=== PATIENT | female | born 1995 ===

== ENCOUNTER → 2020-12-25 11:52 | Outpatient (BNVA) | payer SELFPAY | PROVIDERS: PCP Pediatrics; Visit Provider Physician Assistant | DX: Z02.79 Encounter for issue of other medical certificate (principal) ==

== ENCOUNTER 2022-10-08 21:15 | Emergency (ER) | payer OTHER, SELFPAY ==
[2022-10-08 21:28] VITALS: BP 128/88; PULSE 54; RESP 18; TEMP 36.6; O2SAT 99; BMI 19.1
[2022-10-08 21:58] LABS: MANUAL DIFF FLAG NO
[2022-10-08 22:00] LABS: Basophils Absolute Auto 0.1 X10*3/uL (0.0-0.2); Basophils Percent Auto 1.3 % (0-2); Eosinophils Absolute Auto 1.2 X10*3/uL (0.0-0.4); Hematocrit 39.7 % (37.0-47.0); Hemoglobin 13.1 g/dl (12.0-16.0); Imm Gran Abs Auto 0.02 X10*3/uL (0.00-0.03); Imm Gran Pct Auto 0.2 % (0.0-0.4); Lymphocytes Absolute Auto 2.6 X10*3/uL (1.2-4.9); Lymphocytes Percent Auto 29.8 % (20-40); Mean Corpuscular Volume 87.8 fL (80.0-98.0); Mean Platelet Volume 10.1 fL (9.4-12.3); Monocytes Absolute Auto 0.7 X10*3/uL (0.1-1.2); Monocytes Percent Auto 7.4 % (2-11); Neutrophils Absolute Auto 4.1 x10*3/uL (2.0-8.3); Neutrophils Percent Auto 47.3 % (45-73); Platelet Count 208 X10*3/uL (160-400); Red Blood Count 4.52 X10*6/uL (4.20-5.50); Red Cell Distribution Width 12.4 % (11.0-16.0); White Blood Count 8.8 X10*3/uL (4.8-10.8)
[2022-10-08 22:01] LABS: Appearance Urine Clear; Color Urine Yellow; Glucose Urine UA Negative (Negative); Leukocyte Esterase Urine Negative (Negative); Nitrite Urine Negative (Negative); PH 6.5 (5.0-9.0); Specific Gravity - Urine 1.015 (1.005-1.025); UMIC TRIGGER UACC YES; Urine Blood Large (3+) (Negative); Urine Ketones Negative (Negative); Urine Protein Negative (Neg-Trace)
[2022-10-08 22:08] LABS: Bacteria Urine None Seen (None Seen); Hyaline Casts Urine 0-2 /LPF (0-2); RBC Urine 0-2 /HPF (0-2); WBC Urine 0-5 /HPF (0-5)
[2022-10-08 22:18] LABS: Anion Gap 10 (12-20); Blood Urea Nitrogen 14 mg/dL (9-16); Calcium 9.2 mg/dL (8.4-10.2); Carbon Dioxide 27 mmol/L (22-29); Chloride 106 mmol/L (96-108); Creatinine Clr Calc Pharmacy 71.6; Estimated Glomerular Filt Rate > 60; Glucose Random 95 mg/dL (60-115); Potassium 3.9 mmol/L (3.3-5.1); Sodium 139 mmol/L (135-145)
[2022-10-08 22:21] LABS: HCG Quantitative < 2 mIU/mL
--- NOTE | 2022-10-08 23:11 | ED.FEMALEGU ---
HPI - Female Genitourinary General Chief complaint: Vaginal Bleeding Stated complaint: 1 month bleeding Time Seen by Provider: 10/08/22 22:06 History of Present Illness HPI Narrative: Patient is a 27-year-old female presents today with having vaginal bleeding has been ongoing for about a month. Currently bleeding about 2 pads per day. Patient's bleeding stopped for about 2 weeks. Subsequently restarted about a week and a half ago. Now is being 2 pads per day. She unsure about her status. Patient is from home. No dizziness no nausea no vomiting to see no systemic complaints. She is sexually active Related Data Allergies Allergy/AdvReac Type Severity Reaction Status Date / Time No Known Allergies Allergy Verified 10/08/22 21:28 Review of Systems Review of Systems: No fever no chills no chest pain or shortness breath no systemic complaints Yes all other systems are reviewed and are negative [facility] Past Medical History Attestation statement: The following information was validated with the patient. Social History Social History Advance Directives: No Advance Directives Information Provided: Yes Physical Exam Vital Signs: Vital Signs: Last Vital Signs Temp 97.9 F 10/08/22 21:28 Pulse 54 10/08/22 21:28 Resp 18 10/08/22 21:28 BP 128/88 10/08/22 21:28 Pulse Ox 99 10/08/22 21:28 O2 Del Method Room Air 10/08/22 21:28 BMI result Body Mass Index 19.1 Appearance: Alert. Oriented X3. No acute distress. Eyes: Pupils equal, round and reactive to light. ENT: Pharynx normal. Neck: Normal inspection. Neck supple. No lymph nodes noted. No crepitus CVS: Normal heart rate and rhythm. Pulses normal. Normal S1 and S2 Respiratory: No respiratory distress. Breath sounds normal. No Wheezing. No rales Abdomen: Soft and nontender. No rigidity. No distention. good BS x4 Gentle exam done with Sabrina the commercial hvac service technician present. There is no external lesion noted. There is a small abrasion in the vaginal wall on the left side. The cervical os is closed. There was minimal amount of blood in the vaginal vault. There is no adnexal tenderness elicited Skin: Skin warm and dry. Normal skin color. Normal skin turgor. Extremities: No lower extremity edema. Neurovascular intact to all extremities. No Lacerations. No Rash Neuro: Oriented X 3. No motor deficit. No sensory deficit. Moving all extermities. No slurred speech Medical Decision Making Medical Decision Making [facility] Narrative: Patient well-appearing. Hemoglobin is 13. There is no overt signs of anemia. No distress. Heart rate is normal. Patient's test is negative. Unlikely to have ectopic . Will discharge patient home. Postop follow-up with OBGYN on an outpatient basis Differential Diagnosis related issue, retained product, vaginal bleeding, normal menstruation Lab Data [facility] Lab Attestation statement: I reviewed the patient's lab results. 10/08/22 21:48 10/08/22 21:48 Labs: Lab Results 10/08/22 10/08/22 10/08/22 Range/Units 21:48 21:48 21:54 WBC 8.8 (4.8-10.8) X10*3/uL RBC 4.52 (4.20-5.50) X10*6/uL Hgb 13.1 (12.0-16.0) g/dl Hct 39.7 (37.0-47.0) % MCV 87.8 (80.0-98.0) fL MCH 29.0 (27.0-33.0) pg MCHC 33.0 (31.0-35.0) g/dl RDW 12.4 (11.0-16.0) % Plt Count 208 (160-400) X10*3/uL MPV 10.1 (9.4-12.3) fL Immature Gran % (Auto) 0.2 (0.0-0.4) % Neut % (Auto) 47.3 (45-73) % Lymph % (Auto) 29.8 (20-40) % [place] % (Auto) 7.4 (2-11) % Eos % (Auto) 14.0 H (0-4) % Baso % (Auto) 1.3 (0-2) % Lymph # (Auto) 2.6 (1.2-4.9) X10*3/uL [place] # (Auto) 0.7 (0.1-1.2) X10*3/uL Eos # (Auto) 1.2 H (0.0-0.4) X10*3/uL Baso # (Auto) 0.1 (0.0-0.2) X10*3/uL Abs Immat Gran (auto) 0.02 (0.00-0.03) X10*3/uL Absolute Neuts (auto) 4.1 (2.0-8.3) x10*3/uL Absolute Nucleated RBC 0.000 (0.0-0.012) X10*3/uL Nucleated RBC % (auto) 0.0 (0.0-0.2) /100WBC Sodium 139 (135-145) mmol/L Potassium 3.9 (3.3-5.1) mmol/L Chloride 106 (96-108) mmol/L Carbon Dioxide 27 (22-29) mmol/L Anion Gap 10 L (12-20) BUN 14 (9-16) mg/dL Creatinine 0.98 (0.5-1.4) mg/dL Estim Creat Clear Calc 71.6 Estimated GFR > 60 Random Glucose 95 (60-115) mg/dL Calcium 9.2 (8.4-10.2) mg/dL Beta HCG, Quant < 2 mIU/mL Urine Color Yellow Urine Appearance Clear Urine pH 6.5 (5.0-9.0) Ur Specific [place] 1.015 (1.005-1.025) Urine Protein Negative (Neg-Trace) mg/dL Urine Glucose (UA) Negative (Negative) mg/dL Urine Ketones Negative (Negative) mg/dL Urine Blood Large (3+) H (Negative) Urine Nitrite Negative (Negative) Ur Leukocyte Esterase Negative (Negative) Urine RBC 0-2 (0-2) /HPF Urine WBC 0-5 (0-5) /HPF Ur Squamous Epith Cells 3-5 (0-2) /HPF Urine Bacteria None Seen (None Seen) Hyaline Casts 0-2 (0-2) /LPF Independent Historian Clinical information obtained from an independent historian. History obtained from or confirmed by: Spouse Discharge Plan Discharge Clinical Impression: Vaginal bleeding Patient Disposition: Home, Self-Care Instructions: Dysfunctional Uterine Bleeding (ED) Referrals: Sal Hammonds MD [Physician] - 10/12/22
--- NOTE | 2022-10-08 23:13 | MHC.EDTECH ---
this pct investigations manager with dr alegria during patient pelvic exam .
[2022-10-08 23:17] VITALS: BP 114/67; PULSE 75; RESP 16; TEMP 36.6; O2SAT 97
== END 2022-10-08 23:35 | disposition home or self-care (01) ==
PROVIDERS: Emergency Provider Emergency Medicine Emergency Medical Services
DX: N93.9 Abnormal uterine and vaginal bleeding, unspecified (principal)
CPT/HCPCS: 36415; 80048; 81001; 84702; 85025; 99283; 99284

== ENCOUNTER 2025-05-11 09:50 | Outpatient (REF) | payer OTHER, SELFPAY ==
--- OUTSIDE RECORDS SUMMARY | 2025-05-11 10:50 | XMS_ITS | Clinical Summary ---
Author Organization [employer] Address [address] [place] [address] Care Team Providers Care Motor Builder Winder Name Role Phone Jennifer Butts MD Primary Care Provide r Allergies No known active allergies Medications fluticasone (Flonase) 50 MCG/ACT nasal sprayIndication s:Allergic rhinitis, unspecified seasonality, unspecified trigger Use 1-2 sprays each nostril daily. Shake gently. Before first use, prime pump. After use, clean tip and replace cap. 16 g 2 04/23/20 25 Active loratadine (Claritin) 10 MG tabletIndicatio ns:Allergic rhinitis, unspecified seasonality, unspecified trigger Take 1 tablet (10 mg) by mouth Once per day. 30 tablet 2 04/23/20 25 026 Active fluticasone (Flonase) 50 MCG/ACT nasal sprayIndication s:Allergic rhinitis, unspecified seasonality, unspecified trigger Use 1-2 sprays each nostril daily. Shake gently. Before first use, prime pump. After use, clean tip and replace cap. 16 g 2 09/20/19 25 025 Discontinued(Re order (will not trigger notification to Pharmacy)) loratadine (Claritin) 10 MG tabletIndicatio ns:Allergic rhinitis, unspecified seasonality, unspecified trigger Take 1 tablet (10 mg) by mouth Once per day. 30 tablet 2 09/20/19 25 025 Discontinued(Re order (will not trigger notification to Pharmacy)) Active Problems Problem Noted Date Diagnosed Date Seasonal allergic rhinitis 04/23/2025 Health care maintenance 04/23/2025 Encounters Date Type Department Care Team Description 04/23/2025 10:45 AM EST Office Visit [facility] [address] [place] [address] Jennifer Butts MD Seasonal allergic rhinitis, unspecified trigger (Primary Dx); Health care maintenance; Allergic rhinitis, unspecified seasonality, unspecified trigger 04/23/2025 Travel 04/10/2025 Patient Outreach [facility] [address] [place] [address] Jennifer Butts MD Pre-visit Planning (SDNH screening completed on 12/26/2024) from Last 3 Months Social History Tobacco Use Types Packs/Day Years Used Date Smoking Tobacco: Never Smokeless Tobacco: Never Tobacco Cessation:Counseling Given: Not Answered Housing Stability Answer Date Recorded What is your housing situation today? I have lorrimaría elena mares 12/26/[address] you li ve. Do you have problems with any of the following? None of the above 12/26/2024 Food Insecurity Answer Date Recorded Within the past 12 months, y ou worried that your food would run out before you got money to buy more: Never True 12/26/2024 Within the past 12 months,th e food you bought just didn't last and you didn't have enough money to get more: Never True 09/2024 Transportation Answer Date Recorded In the past 12 months, has l ack of transportation kept you from medical appts, meetings, work or from getting things needed for daily living? No 12/26/2024 Utilities Answer Date Recorded In the past 12 months, has t he electric, gas, oil or water company threatened to shut off services in your home? No 12/26/2024 Internet Access Answer Date Recorded Internet Access Q1 Yes 12/26/2024 Internet Access Q2 Not on file 12/26/2024 Comments Unknown Sex and Gender Information Value Date Recorded Sex Assigned at Female 09/19/2024 5:03 PM EDT Legal Sex Female 3:45 PM EDT Gender Identity Female 09/19/2024 5:03 PM EDT Sexual Orientation Straight 09/19/2024 5: 03 PM EDT Last Filed Vital Signs Vital Sign Reading Time Taken Comments Blood Pressure 92/68 04/23/2025 10:57 AM EST Pulse 72 04/23/2025 10:57 AM EST Temperature 36.1 C (96.9 F) 04/23/2025 10:57 AM EST Respiratory Rate 14 04/23/2025 10:57 AM EST Oxygen Saturation 98% 04/23/2025 10:57 AM EST Inhaled Oxygen Concentration - - Weight 55.5 kg (122 lb 6.4 oz) 04/23/2025 10:57 AM EST Height 165.1 cm (5' 5 ) 04/23/2025 10:57 AM EST Body Mass Index 20.37 04/23/2025 10:57 AM EST Plan of Treatment Upcoming Encounters Date Type Department Care Team (Late st Contact Info) Description 05/16/2025 9:00 AM EST Telemedicine [facility] [address] [place], [place] [phone] Jennifer Butts MD [address] [place] [address] Health Maintenance Due Date Last Done Comments Depression Screening 1996 HIV Screening 1996 Disability Screening 1996 Alcohol/Substance Use Screening 2008 Family Planning (PISQ) 2011 Hepatitis C Screening 2014 Pap Smear 2017 COVID-19 Vaccine ( season) 2025 12/12/2020 Influenza Vaccine (#1) 2025 , 05/05/2023, 06/03/2016, Additional history exists SDOH Screening 12/26/2025 12/26/2024 Tobacco Screening 04/23/2026 04/23/2025 DTaP/Tdap/Td Vaccines (8 - Td or Tdap) 04/22/2033 04/22/2023, 11/15/2012, 09/16/2007, Additional history exists Zoster Vaccines (1 of 2) 2046 Hepatitis B Vaccines Completed 1996, 1996, 1996 HIB Vaccines Completed 08/06/1997, 12/23, 1996, Additional history exists IPV Vaccines Completed 05/12/2000, 12/23, 1996, Additional history exists HPV Vaccines Completed 04/02/2008, 07/0 12/2007, 09/16/2007 Hepatitis A Vaccines Completed 05/31/2015, 05/03/20 14 Meningococcal Vaccine Aged Out 05/31/2015, 008 No longer eligible based on patient's age to complete this topic RSV Patients and Patients Aged 60 years or older Completed 05/19/2023 Meningococcal B Vaccine Aged Out No l onger eligible based on patient's age to complete this topic Pneumococcal Vaccine: Pediatrics (0 to 5 Years) and At-Risk Patients (6 to 49) Years Aged Out No longer eligible based on patient's age to complete this topic RSV under 20 months Aged Out No longe r eligible based on patient's age to complete this topic Rotavirus Vaccines Aged Out No longer eligible based on patient's age to complete this topic Insurance [id number] [employer] C3 Care Teams Motor Builder Winder Relationship Specialty Start Date End Date Jennifer Butts MD [address] [place] [id number] PCP - General Internal Medicine 04/23/25
--- OUTSIDE RECORDS SUMMARY | 2025-05-11 10:50 | XMS_ITS | Encounter Summary ---
Author Organization [facility] Address [address] [place] [phone] Phone Care Team Providers Care Top Bottom Attaching Machine Operator Name Role Phone Maya Lux NP Primary Care Provider [phone] Encounter Details Date Type Department Care Team (Late st Contact Info) Description 01/07/2017 Conversion Encounter [facility] - [address] [address] Social History Tobacco Use Types Packs/Day Years Used Date Smoking Tobacco: Never Comments:Never smoker Comments Unknown Sex and Gender Information Value Date Recorded Sex Assigned at Not on file Legal Sex Female 5:17 PM EDT Gender Identity Not on file Sexual Orientation Not on file documented as of this encounter Plan of Treatment Not on file documented as of this encounter Visit Diagnoses Not on filedocumented in this encounter Care Teams Top Bottom Attaching Machine Operator Relationship Specialty Start Date End Date Maya Lux NP PCP - General 01/01/17 documented as of this encounter
--- OUTSIDE RECORDS SUMMARY | 2025-05-11 10:50 | XMS_ITS | Clinical Summary ---
Author Organization [facility] Address [address] [place] [address] Phone Care Team Providers Care Evidence Technician Name Role Phone Maya Lux EDIN Primary Care Provider [phone] Immunizations Immunization Administration Dates Next Due DTaP 5 08/16/2000, 8,01/12/1997,10/17,1996 HPV, Quadrivalent 04/02/2008,11/29/2007,09/16/19 08 Hep A, Adult 05/31/2015 Hep A, ped/adol 05/03/2014 Hep B, ped/adol 1996,1996,1996 Hib (PRP-T) 08/06/1997, 7,1996,07/12 IPV 05/12/2000, 7,1996,07/12 Influenza Split 05/07/2011,03/04/2010 Influenza, injectable, quadrivalent 06/03/2016,0 05/31/2015,05/03/2014 MMR 05/12/2000,04/24/1997 Meningococcal Conj (Menactra) MCV4P 05/31/2015 Meningococcal Polysaccharide 09/16/2007 Td (adult) (MBL), 2 Lf tetan us toxoid, PF, adsorbed 09/16/2007 Tdap 11/15/2012 Varicella 11/29/2007,04/24/1997 Family History Relation Name Status Comments Father Father: Migrain es, Hyperlipidemia Maternal Grandmother Materna l grandmother: Diabetes mellitus Mother Mother: Hyperli pidemia, Migraines, Asthma Other aunt: Obesity Paternal Grandfather Paterna l grandfather: Hyperlipidemia, Sudden /[place] under 55 Paternal Grandmother Paterna l grandmother: Diabetes mellitus, Hyperlipidemia Social History Tobacco Use Types Packs/Day Years Used Date Smoking Tobacco: Never Comments:Never smoker Comments Unknown Sex and Gender Information Value Date Recorded Sex Assigned at Not on file Legal Sex Female 5:17 PM EDT Gender Identity Not on file Sexual Orientation Not on file Last Filed Vital Signs Vital Sign Reading Time Taken Comments Blood Pressure 108/69 06/03/2016 12:00 AM EST Pulse 75 06/03/2016 12:00 AM EST Temperature 36.7 C (98 F) 02/09/2013 12:00 AM EDT Respiratory Rate - - Oxygen Saturation - - Inhaled Oxygen Concentration - - Weight 47.6 kg (105 lb) 06/03/2016 12:00 AM EST Height 167 cm (5' 5.75 ) 06/03/2016 12:00 AM EST Body Mass Index 17.08 06/03/2016 12:00 AM EST Plan of Treatment Health Maintenance Due Date Last Done Comments DTaP,Tdap,and Td Vaccines (7 - Td or Tdap) 11/15/2022 11/15/2012, 09/16/2007, 08/16/2000, Additional history exists Influenza Vaccines (#1) 2024 06/03/19 17, 05/31/2015, 05/03/2014, Additional history exists COVID-19 Vaccine (2024- season) 2025 Hepatitis B Vaccines Completed 1996, 1996, 1996 HIB Vaccines Completed 08/06/1997, 12/23, 1996, Additional history exists IPV Vaccines Completed 05/12/2000, 12/23, 1996, Additional history exists MMR Vaccines Completed 05/12/2000, 04/24/1997 Varicella Vaccines Completed 11/29/2007, 04/24/1997 HPV Vaccines Completed 04/02/2008, 12/2007, 09/16/2007 Hepatitis A Vaccines Completed 05/31/2015, 05/03/20 14 Meningococcal Vaccine Completed 05/31/2015 Men B Vaccine Aged Out No longer elig ible based on patient's age to complete this topic Pneumococcal Vaccine Aged Out No long er eligible based on patient's age to complete this topic Procedures * Due to [place] state law, this organization might not be sharing sensitive test results. Procedure Name Priority Date/Time Associated Diagnosis Comments CHLAMYDIA AND GONORRHEA, AMPLIFIED Routine 06/04/2016 2:06 PM EST from Last 3 Months or Most Recently Relevant to Health Maintenance Results * Due to [place] state law, this organization might not be sharing sensitive test results. * Chlamydia and Gonorrhoea, Amplified (06/04/2016 2:06 PM EST) URINE GC AMP PROBE NEGATIVE [facility] Comment: No Neisseria Gonorrhoeae RNA detected in this patient's sample (REFERENCE RANGE/NORMAL VALUE: NOT DETECTED) NOTE: This test uses medication tech-mediated amplification method to detect rRNA from C.Trachomatis and N.Gonorrhoeae. A negative result does not preclude infection. In the case of a negative urine result, testing of an endocervical(female) or urethral(male) specimen is recommended if there is high clinical suspicion of infection. The performance characteristics of this test have not been evaluated in children. The Aptima Combo2 assay is not intended for the evaluation of suspected sexual abuse or for other medico-legal indications. The ordering provider should assess if the patient had consensual sex without risk of sexual abuse. Consult the [facility] if needed. Contact phone number . Therapeutic failure or success cannot be determined with the Aptima Combo2 assay since nucleic acid may persist following appropriate antimicrobial therapy. The Centers for Disease Control and Prevention (CDC) recommends confirmatory retesting using culture or a different nucleic acid amplification test when positive results occur, if indicated. Testing performed or reported by [facility], a Service of [facility], [facility] [place] [address] CLIA [id number] Rolan Landon MD, PhD, Plaster And Stucco Worker URINE CHLAMYDIA AMP PROBE NEGATIVE [facility] Comment: No Chlamydia Trachomatis RNA detected in this patient's sample (REFERENCE RANGE/NORMAL VALUE: NOT DETECTED) 06/04/2016 2:06 PM EST Narrative [facility] - 06/04/2016 2:06 PM EST URINE CHLAMYDIA GC AMP PROBE us Maya Lux NP LAB MICROBIOLOGY - GENERAL ORDER MELODIE Final Result [facility] [address] [place] [address], [place] from Last 3 Months or Most Recently Relevant to Health Maintenance Care Teams Evidence Technician Relationship Specialty Start Date End Date Maya Lux NP PCP - General 01/01/17
--- OUTSIDE RECORDS SUMMARY | 2025-05-11 10:51 | XMS_ITS | Encounter Summary ---
Author Organization [facility] Address [address] [place] [address] Phone Care Team Providers Care Tankroom Tender Name Role Phone Maya Lux NP Primary Care Provider [phone] Encounter Details Date Type Department Care Team (Late st Contact Info) Description 06/26/2014 Documentation [facility] Family Medicine [address] [place] [address] Family Medicine, Physician [address] [place] [place], [place] [id number] Social History Tobacco Use Types Packs/Day Years Used Date Smoking Tobacco: Never Assessed Comments Unknown Sex and Gender Information Value Date Recorded Sex Assigned at Not on file Legal Sex Female 5:17 PM EDT Gender Identity Not on file Sexual Orientation Not on file documented as of this encounter Plan of Treatment Not on file documented as of this encounter Visit Diagnoses Not on filedocumented in this encounter Care Teams Tankroom Tender Relationship Specialty Start Date End Date Maya Lux NP PCP - General 01/01/17 documented as of this encounter
--- OUTSIDE RECORDS SUMMARY | 2025-05-11 10:51 | XMS_ITS | Encounter Summary ---
Author Organization [facility] Address [address] [place], [place] [phone] Phone Care Team Providers Care Chief Electrician Name Role Phone Maya Lux NP Primary Care Provider [phone] Encounter Details Date Type Department Care Team (Late st Contact Info) Description 06/01/2014 Documentation [facility] Family Medicine [address] [place] [address] Family Medicine, Physician [address], [place] [id number] Social History Tobacco Use Types Packs/Day Years [...] on filedocumented in this encounter Care Teams Chief Electrician Relationship Specialty Start Date End Date Maya Lux NP PCP - General 01/01/17 documented as of this encounter
[2025-05-11 12:45] LABS: MANUAL DIFF FLAG NO
[2025-05-11 12:53] LABS: Hematocrit 41.3 % (37.0-47.0); Hemoglobin 13.4 g/dl (12.0-16.0); Imm Gran Abs Auto 0.02 X10*3/uL (0.00-0.03); Imm Gran Pct Auto 0.3 % (0.0-0.4); Lymphocytes Absolute Auto 1.8 X10*3/uL (1.2-4.9); Mean Corpuscular HGB Conc 32.4 g/dl (31.0-35.0); Mean Corpuscular Hemoglobin 28.6 pg (27.0-33.0); Mean Corpuscular Volume 88.2 fL (80.0-98.0); NRBC Abs Auto 0.000 X10*3/uL (0.0-0.012); NRBC Pct Auto 0.0 /100WBC (0.0-0.2); Platelet Count 247 X10*3/uL (160-400); Red Blood Count 4.68 X10*6/uL (4.20-5.50); White Blood Count 7.1 X10*3/uL (4.8-10.8)
[2025-05-11 13:32] LABS: Alanine Aminotransferase 11 U/L (0-31); Albumin Level 4.4 g/dL (3.5-5.0); Alkaline Phosphatase 49 U/L (39-117); Anion Gap 9 (12-20); Aspartate Amino Transferase 21 U/L (5-31); Blood Urea Nitrogen 12 mg/dL (9-16); Calcium 9.1 mg/dL (8.4-10.2); Carbon Dioxide 26 mmol/L (22-29); Chloride 108 mmol/L (96-108); Cholesterol 141 mg/dL (<200); Estimated Glomerular Filt Rate > 60; HDL Cholesterol 46 mg/dL (>40); Potassium 4.2 mmol/L (3.3-5.1); Sodium 139 mmol/L (135-145); Total Protein 7.1 g/dL (6.5-8.0); Triglycerides 48 mg/dL (<150)
[2025-05-14 04:32] LABS: HIV Num 1 0.09 S/CO (0.00-0.99); ~HepC Num1 0.19 S/CO (0.00-0.79); ~Hepatitis C Antibody Nonreactive (Nonreactive)
== END 2025-05-11 09:51 | disposition home or self-care (01) ==
LOC: HO.HHCL 09:50
PROVIDERS: PCP Internal Medicine; Visit Provider Internal Medicine
DX: Z00.00 Encounter for general adult medical examination without abnormal findings (principal)
CPT/HCPCS: 36415; 80053; 80061; 82306; 83036; 84443; 85025; 86803; 87389